=== PATIENT | female | born 1975 | race African-American/Black ===

== ENCOUNTER 2016-07-17 17:45 | Emergency (ER) | payer SELFPAY ==
[~2016-07-17] VITALS: Ht 162.6 cm; Wt 85.7 kg
[~2016-07-17 17:45] MED LIST: ACETAMINOPHEN-1 EAC1; ATENOLOL50 MG ORAL; BENADRYL25 M3 PO; BENADRYL50 MG ORAL; BENAZEPRIL HCL10 MG ORAL; HYDROCHLOROTHIA25 MG ORAL; OMEPRAZOLE20 M3 ORAL; PREDNISONE20 MG ORAL; PROAIR HFA8.5 GM; ZANTAC150 MG ORAL
[2016-07-17] MEDS ORDERED: PROAIR HFA8.5 GM INH (18:02)
[2016-07-17] MEDS ORDERED: ATIVAN0.5 MG ORAL (18:02)
--- NOTE | 2016-07-17 18:19 | Emergency Room Report ---
History of Present Illness General Chief Complaint: Pain Source: Patient, Medical Record Present Illness HPI The patient is a 41-year-old female with a history of hypertension presenting for absence of period for the past 2 months. The patient believes she may be . The patient has been experiencing nausea and vomiting which occurs only after eating. The patient has tried a test at home which were inconclusive. The patient states she has not taken her antihypertensive medications which include hydrochlorothiazide, atenolol, and benazepril for the past month because she ran out of medications and was unable to see the doctor. Pt denies any other symptoms such as F, chills, BERGMAN, dizziness, abd pain, dysuria , hematuria, vaginal bleeding, vaginal DC, flank pain, swelling Allergies: Coded Allergies: BANANA (Verified Allergy, Severe, Itching, 06/18/13) STRAWBERRY (Verified Allergy, Severe, Itching, 06/18/13) Patient History Past Medical History: see triage record Pertinent Family History: none Last Menstrual Period: 05/26/2016 Now: Yes - Possible : 2 Para: 3 Reviewed Nursing Documentation: PMH: Agreed, PSxH: Agreed Nursing Documentation-PMH Hx Hypertension: Yes Hx Asthma: Yes Review of Systems All Other Systems: negative except mentioned in HPI Physical Exam Vital Signs Date Time Temp Pulse Resp B/P Pulse Ox O2 Delivery O2 Flow Rate FiO2 07/17/16 17:53 98.1 106 16 192/109 100 Room Air Sp02 EP Interpretation: reviewed, normal General Appearance: no apparent distress, alert, GCS 15, non-toxic Head: normocephalic, atraumatic Eyes: bilateral eye PERRL, bilateral eye normal inspection ENT: hearing grossly normal, normal pharynx, no angioedema, normal voice Neck: full range of motion, supple/symm/no masses Respiratory: chest non-tender, lungs clear, normal breath sounds, speaking full sentences Cardiovascular #1: regular rate, rhythm, no edema Gastrointestinal: normal bowel sounds, non tender, soft, no mass, non-distended , no guarding, no rebound Musculoskeletal: back normal, gait/station normal, normal range of motion, non- tender Neurologic: alert, oriented x3, responsive, motor strength/tone normal, sensory intact, speech normal Psychiatric: judgement/insight normal, memory normal, mood/affect normal, no suicidal/homicidal ideation Skin: normal color, no rash, warm/dry, well hydrated Lymphatic: no adenopathy Medical Decision Making PA Attestation Dr. Fischer is my supervising physician. Patient management was discussed with my supervising physician Diagnostic Impression: Primary Impression: Nausea & vomiting Additional Impression: Possible ER Course The patient is a 41-year-old female with a history of hypertension presenting for absence of period for the past 2 months Differential diagnoses considered include but not limited to Early , threatened , incomplete , ectopic , hemorrhagic cyst, UTI, PID PE: HTN. Afebrile. NAD Abdomen: Normal appearance. Non distended. No ecchymosis. Normal BS. Non TTP. No McBurney point tenderness. No guarding. No CVA tenderness Lab: CBC shows anemia and leukocytosis of 12.8 CMP: hypokalemia. Beta hCG of 557 UA: no signs of infection. No blood. Urine preg: negative. Pt has declined US. The pt is informed of these results and will take in dietary potassium though foods such as spinach. The pt is advised she needs to return to the ED in 2 days for recheck of Beta hCG and possibly US. Pt agrees. ER precautions given. Laboratory Tests Test 07/17/16 18:40 White Blood Count 12.8 K/UL (4.8-10.8) H Red Blood Count 4.88 M/UL (4.20-5.40) Hemoglobin 9.0 G/DL (12.0-16.0) L Hematocrit 32.0 % (37.0-47.0) L Mean Corpuscular Volume 66 FL (80-99) L Mean Corpuscular Hemoglobin 18.5 PG (27.0-31.0) L Mean Corpuscular Hemoglobin Concent 28.2 G/DL (32.0-36.0) L Red Cell Distribution Width 16.9 % (11.6-14.8) H Platelet Count 227 K/UL (150-450) Mean Platelet Volume 10.1 FL (6.5-10.1) Neutrophils (%) (Auto) 72.2 % (45.0-75.0) Lymphocytes (%) (Auto) 20.8 % (20.0-45.0) Monocytes (%) (Auto) 5.5 % (1.0-10.0) Eosinophils (%) (Auto) 1.0 % (0.0-3.0) Basophils (%) (Auto) 0.6 % (0.0-2.0) Urine Color Yellow Urine Appearance Slightly cloudy Urine pH 6 (4.5-8.0) Urine Specific [place] 1.015 (1.005-1.035) Urine Protein Negative (NEGATIVE) Urine Glucose (UA) Negative (NEGATIVE) Urine Ketones Negative (NEGATIVE) Urine Occult Blood Negative (NEGATIVE) Urine Nitrite Negative (NEGATIVE) Urine Bilirubin Negative (NEGATIVE) Urine Urobilinogen 1 MG/DL (0.0-1.0) H Urine Leukocyte Esterase 1+ (NEGATIVE) H Urine RBC 0-2 /HPF (0 - 2) Urine WBC 2-4 /HPF (0 - 2) Urine Squamous Epithelial Cells Many /LPF (NONE/OCC) H Urine Bacteria Few /HPF (NONE) Urine HCG, Qualitative Negative Sodium Level 139 mEQ/L (135-145) Potassium Level 3.1 mEQ/L (3.4-4.9) L Chloride Level 97 mEQ/L (98-107) L Carbon Dioxide Level 24 mEQ/L (20-30) Anion Gap 18 (5-15) H Blood Urea Nitrogen 8 mg/dL (7-23) Creatinine 0.7 mg/dL (0.5-0.9) Estimate Glomerular Filtration Rate > 60 mL/min (>60) Glucose Level 119 mg/dL (74-106) H Calcium Level 9.1 mg/dL (8.6-10.2) Total Bilirubin 0.2 mg/dL (0.0-1.2) Aspartate Amino Transferase (AST) 15 U/L (5-40) Alanine Aminotransferase (ALT) 11 U/L (3-33) Alkaline Phosphatase 77 U/L (35-104) Total Protein 7.4 g/dL (6.6-8.7) Albumin 4.4 g/dL (3.5-5.2) Globulin 3.0 g/dL Albumin/Globulin Ratio 1.4 (1.0-2.7) Lipase 38 U/L (< 60) Human Chorionic Gonadotropin, Quant 557 mIU/mL Lab Results Impression CBC shows anemia and leukocytosis of 12.8 CMP: hypokalemia. Beta hCG of 557 UA: no signs of infection. No blood. Urine preg: negative. Last Vital Signs Date Time Temp Pulse Resp B/P Pulse Ox O2 Delivery O2 Flow Rate FiO2 07/17/16 17:53 98.1 106 16 192/109 100 Room Air Status: improved Disposition: HOME, SELF-CARE Condition: Improved PIOTR BRANDON Jul 17, 2016 18:19
[2016-07-17 19:17] LABS: APPEARANCE,URINE SLIGHTLY CLOUDY; KETONES,URINE NEGATIVE (NEGATIVE); LEUKOCYTE ESTERASE ,URINE 1+ (NEGATIVE); NITRITE,URINE NEGATIVE (NEGATIVE); PH,URINE 6 (4.5-8.0); PROTEIN,URINE NEGATIVE (NEGATIVE); UROBILINOGEN,URINE 1 MG/DL (0.0-1.0)
[2016-07-17 19:22] LABS: BASOPHILS % (AUTO) 0.6 % (0.0-2.0); LYMPHOCYTES % (AUTO) 20.8 % (20.0-45.0); MEAN CORPUSCULAR HEMOGLOBIN 18.5 PG (27.0-31.0); MEAN CORPUSCULAR HGB CONC 28.2 G/DL (32.0-36.0); MEAN CORPUSCULAR VOLUME 66 FL (80-99); MEAN PLATELET VOLUME 10.1 FL (6.5-10.1); MONOCYTES % (AUTO) 5.5 % (1.0-10.0); NEUTROPHILS % (AUTO) 72.2 % (45.0-75.0); PLATELET COUNT 227 K/UL (150-450); RED BLOOD COUNT 4.88 M/UL (4.20-5.40); RED CELL DISTRIBUTION WIDTH 16.9 % (11.6-14.8); WHITE BLOOD COUNT 12.8 K/UL (4.8-10.8)
[2016-07-17 19:24] LABS: ALANINE AMINOTRANSFERASE 11 U/L (3-33); ALBUMIN/GLOBULIN RATIO 1.4 (1.0-2.7); ANION GAP 18 (5-15); ASPARTATE AMINO TRANSFERASE 15 U/L (5-40); CALCIUM 9.1 mg/dL (8.6-10.2); CARBON DIOXIDE 24 mEQ/L (20-30); CHLORIDE 97 mEQ/L (98-107); CREATININE 0.7 mg/dL (0.5-0.9); GLOMERULAR FILTRATION RATE > 60 mL/min (>60); HEMOLYSIS 2; LIPASE 38 U/L (< 60); POTASSIUM 3.1 mEQ/L (3.4-4.9); SODIUM 139 mEQ/L (135-145); TOTAL PROTEIN 7.4 g/dL (6.6-8.7)
[2016-07-17 19:26] LABS: RBC,URINE 0-2 /HPF (0 - 2)
[2016-07-17 19:27] LABS: BACTERIA,URINE FEW /HPF; SQUAMOUS EPITHELIAL CELL,UR MANY /LPF (NONE/OCC)
[2016-07-17 19:54] VITALS: BP 147/83
[2016-07-17 19:55] VITALS: BP 147/83
== END 2016-07-17 19:59 | disposition home or self-care (01) ==
LOC: EMR 18:20
DX: R11.2 Nausea with vomiting, unspecified (principal); I10 Essential (primary) hypertension; J45.909 Unspecified asthma, uncomplicated; Z79.899 Other long term (current) drug therapy; Z91.018 Allergy to other foods
CPT/HCPCS: 36415; 80053; 81003; 81025; 83690; 84702; 85025; 96374

== ENCOUNTER 2016-08-11 03:08 | Emergency (ER) | payer SELFPAY ==
[~2016-08-11] VITALS: Ht 160 cm; Wt 59.0 kg
[~2016-08-11 03:08] MED LIST changes: +ATIVAN0.5 MG ORAL; +PROAIR HFA8.5 GM INH
--- NOTE | 2016-08-11 03:33 | Emergency Room Report ---
History of Present Illness General Chief Complaint: Nosebleed Source: Patient Present Illness HPI Is a 41-year-old female with a history hypertension. She presents with chief complaint of nosebleed. She's been off of her blood pressure medication for about 2 months now. Reason for this because she may be . She was seen here in early July and had a beta-hCG of 550. She's off of her medication. She was doing well until this morning when she caught and had nosebleed. It stopped tonight she was coughing and nosebleed start bleeding again. Going from both side. Also cause her to choke because it low-back her throat. No fever or chills but no trauma. Denies any other complaint. No swelling. Allergies: Coded Allergies: BANANA (Verified Allergy, Severe, Itching, 06/18/13) STRAWBERRY (Verified Allergy, Severe, Itching, 06/18/13) Patient History Past Medical History: see triage record, old chart reviewed, HTN Past Surgical History: none Pertinent Family History: none Social History: Denies: smoking Last Menstrual Period: MAY Now: Yes - 6 TO 8 WEEKS Immunizations: other Reviewed Nursing Documentation: PMH: Agreed, PSxH: Agreed Nursing Documentation-PMH Hx Hypertension: Yes Hx Asthma: Yes Review of Systems Eye: Denies: blurred vision, eye pain ENT: Denies: ear pain, nose congestion, throat swelling Respiratory: Denies: cough, shortness of breath Cardiovascular: Denies: chest pain, palpitations Gastrointestinal: Denies: abdominal pain, diarrhea, nausea, vomiting Musculoskeletal: Denies: back pain, joint pain Skin: Denies: rash Neurological: Denies: headache, numbness Endocrine: Denies: increased thirst, increased urine Hematologic/Lymphatic: Denies: easy bruising All Other Systems: negative except mentioned in HPI Physical Exam Vital Signs Date Time Temp Pulse Resp B/P Pulse Ox O2 Delivery O2 Flow Rate FiO2 08/11/16 03:03 98.1 74 18 160/84 98 vitals hypertension Sp02 EP Interpretation: reviewed, normal General Appearance: well appearing, no apparent distress, alert Head: normocephalic, atraumatic Eyes: bilateral eye EOMI, bilateral eye PERRL ENT: hearing grossly normal, normal pharynx, other - Bleeding from both nares Neck: full range of motion, supple, no meningismus Respiratory: chest non-tender, lungs clear, normal breath sounds Cardiovascular #1: regular rate, rhythm, no murmur Gastrointestinal: normal bowel sounds, non tender, no mass, no organomegaly, no bruit, non-distended Musculoskeletal: back normal, gait/station normal, normal range of motion Psychiatric: mood/affect normal Skin: warm/dry Medical Decision Making Diagnostic Impression: Primary Impression: Epistaxis Additional Impressions: Hypertension Qualified Codes: I10 - Essential (primary) hypertension Cocaine abuse Asthma exacerbation Hypokalemia ER Course Patient presents with epistaxis that resolved. She also has severely high blood pressure which is noncompliant with her medication. She began wheezing after hydralazine. She does have history of asthma and has been on steroid and albuterol before. I suspect the blood pressure is elevated and wheezing may be secondary to cocaine abuse. She denies snorting it. I suspect that she smoking at causing wheezing and high blood pressure. Is also in turn caused nosebleed. Her bleeding stopped already with pressure. Pt's HCG only increased from 557 to 11K in one month. Last time she refused pelvic US. Agree to it now. Pt now refused US. will dc home with Rx for htn meds. pt will need to f/u with US. Laboratory Tests Test 08/11/16 03:35 White Blood Count 10.8 K/UL (4.8-10.8) Red Blood Count 4.41 M/UL (4.20-5.40) Hemoglobin 8.3 G/DL (12.0-16.0) L Hematocrit 28.3 % (37.0-47.0) L Mean Corpuscular Volume 64 FL (80-99) L Mean Corpuscular Hemoglobin 18.9 PG (27.0-31.0) L Mean Corpuscular Hemoglobin Concent 29.4 G/DL (32.0-36.0) L Red Cell Distribution Width 17.2 % (11.6-14.8) H Platelet Count 210 K/UL (150-450) Mean Platelet Volume 9.7 FL (6.5-10.1) Neutrophils (%) (Auto) 66.9 % (45.0-75.0) Lymphocytes (%) (Auto) 22.7 % (20.0-45.0) Monocytes (%) (Auto) 5.6 % (1.0-10.0) Eosinophils (%) (Auto) 4.0 % (0.0-3.0) H Basophils (%) (Auto) 0.9 % (0.0-2.0) Prothrombin Time 10.5 SEC (9.30-11.50) Prothromb Time International Ratio 1.0 (0.9-1.1) Activated Partial Thromboplast Time 27 SEC (23-33) Urine Color Yellow Urine Appearance Clear Urine pH 6 (4.5-8.0) Urine Specific [place] 1.025 (1.005-1.035) Urine Protein 1+ (NEGATIVE) H Urine Glucose (UA) Negative (NEGATIVE) Urine Ketones Negative (NEGATIVE) Urine Occult Blood 2+ (NEGATIVE) H Urine Nitrite Negative (NEGATIVE) Urine Bilirubin Negative (NEGATIVE) Urine Urobilinogen 1 MG/DL (0.0-1.0) H Urine Leukocyte Esterase 2+ (NEGATIVE) H Urine RBC 5-10 /HPF (0 - 2) H Urine WBC 2-4 /HPF (0 - 2) Urine Squamous Epithelial Cells Many /LPF (NONE/OCC) H Urine Bacteria Few /HPF (NONE) Sodium Level 142 mEQ/L (135-145) Potassium Level 2.9 mEQ/L (3.4-4.9) L Chloride Level 99 mEQ/L (98-107) Carbon Dioxide Level 29 mEQ/L (20-30) Anion Gap 14 (5-15) Blood Urea Nitrogen 12 mg/dL (7-23) Creatinine 0.8 mg/dL (0.5-0.9) Estimat Glomerular Filtration Rate > 60 mL/min (>60) Glucose Level 124 mg/dL (74-106) H Calcium Level 9.0 mg/dL (8.6-10.2) Human Chorionic Gonadotropin, Quant 68586 mIU/mL Urine Opiates Screen Negative (NEGATIVE) Urine Barbiturates Screen Negative (NEGATIVE) Phencyclidine (PCP) Screen Negative (NEGATIVE) Urine Amphetamines Screen Negative (NEGATIVE) Urine Benzodiazepines Screen Negative (NEGATIVE) Urine Cocaine Screen Positive (NEGATIVE) H Urine Marijuana (THC) Screen Positive (NEGATIVE) H Lab Results Impression labs showed hypokalemia Rhythm Strip Diag. Results EP Interpretation: yes Rate: 100 Rhythm: NSR, no PVC's, no ectopy Chest X-Ray Diagnostic Results EP Interpretation: Yes Findings: no consolidation, no effusion, no pneumothorax, no acute cardiopulmonary disease Number of Views: 1 Last Vital Signs Date Time Temp Pulse Resp B/P Pulse Ox O2 Delivery O2 Flow Rate FiO2 08/11/16 03:03 98.1 74 18 160/84 98 Status: improved Disposition: HOME, SELF-CARE Condition: Stable Scripts Prednisone* (PREDNISONE*) 20 Mg Tablet 60 MG ORAL DAILY, #15 TAB Prov: RAMONA WEIR M.D. 08/11/16 Albuterol Sulfate* (ALBUTEROL SULFATE MDI*) 8.5 Gm Hfa.aer.ad 2 PUFF INH Q4H Y for cough/wheezing, #1 EA 0 Refills Prov: RAMONA WEIR M.D. 08/11/16 Hydralazine Hcl* (HYDRALAZINE HCL*) 50 Mg Tablet 50 MG ORAL EVERY 8 HOURS, #90 TAB Prov: RAMONA WEIR M.D. 08/11/16 Referrals: NOT CHOSEN IPA/,REFERRING (PCP) Patient Instructions: Nosebleed, [id number] Additional Instructions: Followup with your Dr. in 2 to 3 days. You refuse to have an ultrasound here. You will be a pelvic ultrasound to determine stage of or ectopic or retained products. Stop using cocaine. Take your blood pressure medication. Take your asthma medication. Return if you change your mind. RAMONA WEIR M.D. August 11, 2016 03:33
[2016-08-11 03:45] VITALS: BP 189/98
[2016-08-11 03:49] LABS: APPEARANCE,URINE CLEAR; KETONES,URINE NEGATIVE (NEGATIVE); LEUKOCYTE ESTERASE ,URINE 2+ (NEGATIVE); NITRITE,URINE NEGATIVE (NEGATIVE); PH,URINE 6 (4.5-8.0); PROTEIN,URINE 1+ (NEGATIVE); UROBILINOGEN,URINE 1 MG/DL (0.0-1.0)
[2016-08-11 03:50] LABS: BASOPHILS % (AUTO) 0.9 % (0.0-2.0); LYMPHOCYTES % (AUTO) 22.7 % (20.0-45.0); MEAN CORPUSCULAR HEMOGLOBIN 18.9 PG (27.0-31.0); MEAN CORPUSCULAR HGB CONC 29.4 G/DL (32.0-36.0); MEAN CORPUSCULAR VOLUME 64 FL (80-99); MEAN PLATELET VOLUME 9.7 FL (6.5-10.1); MONOCYTES % (AUTO) 5.6 % (1.0-10.0); NEUTROPHILS % (AUTO) 66.9 % (45.0-75.0); PLATELET COUNT 210 K/UL (150-450); RED BLOOD COUNT 4.41 M/UL (4.20-5.40); RED CELL DISTRIBUTION WIDTH 17.2 % (11.6-14.8); WHITE BLOOD COUNT 10.8 K/UL (4.8-10.8)
[2016-08-11 03:58] LABS: BACTERIA,URINE FEW /HPF; SQUAMOUS EPITHELIAL CELL,UR MANY /LPF (NONE/OCC)
[2016-08-11 04:04] LABS: PROTHROMBIN TIME 10.5 SEC (9.30-11.50)
[2016-08-11 04:07] LABS: ANION GAP 14 (5-15); CARBON DIOXIDE 29 mEQ/L (20-30); CHLORIDE 99 mEQ/L (98-107); CREATININE 0.8 mg/dL (0.5-0.9); GLOMERULAR FILTRATION RATE > 60 mL/min (>60); HEMOLYSIS 0; POTASSIUM 2.9 mEQ/L (3.4-4.9); SODIUM 142 mEQ/L (135-145)
[2016-08-11] MEDS ORDERED: cloNIDine 0.2mg Tab ONE (04:42)
[2016-08-11] MEDS ORDERED: Solu-MEDROL 125mg Inj ONE (04:42)
[2016-08-11] MEDS ORDERED: Norco 5mg/325mg tab ORAL ONE (04:45)
[2016-08-11] MEDS ORDERED: Solu-MEDROL 125mg Inj IVP ONE (04:45)
[2016-08-11] MEDS ORDERED: Ipratropium 0.02% Inh Soln 2.5ml UD HHN ONE (04:45)
[2016-08-11] MEDS ORDERED: Albuterol ud Inhalation HHN ONE ×2 (04:45→05:45)
[2016-08-11 04:58] VITALS: BP 176/115
[2016-08-11 06:06] VITALS: BP 151/125
[2016-08-11] MEDS ORDERED: PREDNISONE20 MG ORAL (06:20)
[2016-08-11] MEDS ORDERED: ALBUTEROL SULF8.5 GM INH (06:20)
[2016-08-11] MEDS ORDERED: HYDRALAZINE HCL50 MG ORAL (06:20)
[2016-08-11 06:25] VITALS: BP 151/125
--- NOTE | 2016-08-11 09:42 | Diagnostic Imaging Report ---
Indication: Shortness of breath Comparison: None A single view chest radiograph was obtained. Findings: Cardiomediastinal appearance is within normal limits for age. Pulmonary vascularity is appropriate. The diaphragmatic contour is smooth and costophrenic angles are sharp. No pleural effusions are identified. The bones are unremarkable. Impression: No acute findings
== END 2016-08-11 06:25 | disposition home or self-care (01) ==
LOC: EDBD 03:08 → EMR 03:24
DX: O26.891 Other specified pregnancy related conditions, first trimester (principal); Z3A.00 Weeks of gestation of pregnancy not specified; R04.0 Epistaxis; J45.909 Unspecified asthma, uncomplicated; O16.1 Unspecified maternal hypertension, first trimester; E87.6 Hypokalemia; F14.10 Cocaine abuse, uncomplicated; Z91.19 Patient's noncompliance with other medical treatment and regimen; F17.210 Nicotine dependence, cigarettes, uncomplicated; Z91.018 Allergy to other foods; Z53.21 Procedure and treatment not carried out due to patient leaving prior to being seen by health care provider
CPT/HCPCS: 36415; 71010; 80048; 80300; 81001; 84702; 85025; 85610; 85730; 94640; 94664; 96374; 96375; 99284; J0360; J2930

== ENCOUNTER 2016-12-30 00:49 | Emergency (ER) | payer SELFPAY ==
[~2016-12-30] VITALS: Ht 162.6 cm; Wt 89.4 kg
[~2016-12-30 00:49] MED LIST changes: +ALBUTEROL SULF8.5 GM INH; +HYDRALAZINE HCL50 MG ORAL
[2016-12-30 01:22] VITALS: BP 180/110
--- NOTE | 2016-12-30 01:25 | Emergency Room Report ---
History of Present Illness General Chief Complaint: Upper Extremity Injury Source: Patient Present Illness HPI 41-year-old female history of asthma and hypertension presenting with left wrist pain. Patient states that she was on her daughter's skate board, fell, landed on an outstretched left hand. Now pain to left wrist, worse with any movement. Denies head trauma or LOC. No other injuries Allergies: Coded Allergies: BANANA (Verified Allergy, Severe, Itching, 06/18/13) STRAWBERRY (Verified Allergy, Severe, Itching, 06/18/13) Patient History Past Medical History: see triage record Past Surgical History: none Pertinent Family History: none Last Menstrual Period: Dec Reviewed Nursing Documentation: PMH: Agreed, PSxH: Agreed Nursing Documentation-PMH Hx Hypertension: Yes Hx Asthma: Yes Review of Systems All Other Systems: negative except mentioned in HPI Physical Exam Vital Signs Date Time Temp Pulse Resp B/P (MAP) Pulse Ox O2 Delivery O2 Flow Rate FiO2 12/30/16 01:10 97.3 96 16 180/110 100 Room Air Sp02 EP Interpretation: reviewed, normal General Appearance: normal inspection, well appearing, no apparent distress, alert, GCS 15, non-toxic Head: normocephalic, atraumatic Eyes: bilateral eye normal inspection, bilateral eye PERRL, bilateral eye EOMI ENT: normal ENT inspection, normal pharynx, normal voice, moist mucus membranes Neck: normal inspection, full range of motion, supple Respiratory: normal inspection, lungs clear, normal breath sounds, no respiratory distress, no retraction, no wheezing, speaking full sentences, chest symmetrical Cardiovascular #1: normal inspection, regular rate, rhythm, no edema, normal capillary refill Cardiovascular #2: 2+ radial (R), 2+ radial (L) Gastrointestinal: normal inspection, non tender, soft, non-distended, no guarding Musculoskeletal: other - L wrist with mild swelling, tender to palpation both medial and lateral aspects, limited wrist flexion and extension secondary to pain, no forearm or hand tenderness Neurologic: normal inspection, alert, oriented x3, responsive, motor strength/ tone normal, sensory intact, normal gait, speech normal Psychiatric: normal inspection, judgement/insight normal, memory normal Skin: normal inspection, normal color, no rash, warm/dry, well hydrated, normal turgor Procedures Splinting Splinting : Consent: Verbal Location: L wrist Pre-Made Type: RUBA wrap Pre-Proc Neuro Vasc Exam: normal Post-Proc Neuro Vasc Exam: normal Patient Tolerated: Well Complications: None Medical Decision Making Diagnostic Impression: Primary Impression: Contusion of wrist, left ER Course 41-year-old female, FOOSH injury, left wrist pain DDX: sprain/strain vs. fracture Plan: pain control x-ray ER course: Pt offered motrin and tylenol, also percocet, only states [employer] works for her there is no fracture on XR patient otherwise NAD at bedside will DC home Disposition: Patient is to be discharged home Patient educated to rest, ice, and elevate extremity and to avoid vigorous activity. Strict precautions discussed with patient on when to return to the emergency room including increased redness or swelling joints, increased pain/swelling of extremity, fever or chills, which could indicate severe illness. Patient is to follow up with their primary care doctor within 5 days. Patient also instructed to follow up with an orthopedic doctor if continuing to have mild/moderate pain as he may need further outpatient imaging. Patient agrees with plan. Please note that this Emergency Department Report was dictated using [employer] manager technology software, occasionally this can lead to erroneous entry secondary to interpretation by the dictation equipment. Other X-Ray Diagnostic Results Other X-Ray Diagnostic Results #1: X-Ray ordered: L wrist # of Views/Limited Vs Complete: 3 View Indication: Pain EP Interpretation: Yes Interpretation: no dislocation, no soft tissue swelling, no fractures Impression: No acute disease Electronically Signed by: Electronically signed by Yudelka Lay MD Other X-Ray Diagnostic Results #2: X-Ray ordered: L forearm # of Views/Limited Vs Complete: 2 View Indication: Pain EP Interpretation: Yes Interpretation: no dislocation, no soft tissue swelling, no fractures Impression: No acute disease Electronically Signed by: Electronically signed by Yudelka Lay MD Last Vital Signs Date Time Temp Pulse Resp B/P (MAP) Pulse Ox O2 Delivery O2 Flow Rate FiO2 12/30/16 01:10 97.3 96 16 180/110 100 Room Air Yudelka Lay M.D. Dec 30, 2016 01:25
[2016-12-30] MEDS ORDERED: Acetaminophen 500mg (ES) tab ORAL ONE (01:45)
[2016-12-30 02:25] VITALS: BP 180/110
--- NOTE | 2016-12-30 11:29 | Diagnostic Imaging Report ---
Indications: PAIN Technique: Two views of the left forearm Comparison: None Findings: No acute fractures. No dislocations. No radiopaque foreign body Impression: Negative
--- NOTE | 2016-12-30 11:31 | Diagnostic Imaging Report ---
Clinical Indication:PAIN, status post fall Technique: 3 views of the left wrist Comparison: None Findings: No acute fractures. No dislocations. Joint spaces are preserved Impression: Negative
== END 2016-12-30 02:29 | disposition home or self-care (01) ==
LOC: EMR 01:21
DX: S60.212A Contusion of left wrist, initial encounter (principal); W19.XXXA Unspecified fall, initial encounter; Y93.51 Activity, roller skating (inline) and skateboarding; J45.909 Unspecified asthma, uncomplicated; I10 Essential (primary) hypertension; Y92.9 Unspecified place or not applicable; Z91.018 Allergy to other foods
CPT/HCPCS: 99284

== ENCOUNTER 2017-12-24 12:54 | Emergency (ER) | payer MEDICAID ==
[~2017-12-24] VITALS: Ht 162.6 cm; Wt 86.2 kg
[2017-12-24 13:15] VITALS: BP 192/129
[2017-12-24] MEDS ORDERED: Sodium Chloride 500ML 500 ML IV ONE (13:48)
--- NOTE | 2017-12-24 13:51 | Emergency Room Report ---
History of Present Illness General Chief Complaint: Headache Source: Patient (Micheal Peacock DO) Present Illness HPI Patient presents with complaints of headache blurry vision reports that she has not taken her blood pressure medication for over the past one year She was previously on hydralazine She also feels that she likely has a UTI Denies any chest pain or short of breath Denies any focal weakness denies any back or flank pain headache is fairly diffuse denies any photophobia denies any neck pain (Micheal Peacock DO) Allergies: Coded Allergies: BANANA (Verified Allergy, Severe, Itching, 06/18/13) STRAWBERRY (Verified Allergy, Severe, Itching, 06/18/13) Patient History Past Medical History: see triage record Pertinent Family History: none Now: No Reviewed Nursing Documentation: PMH: Agreed; PSxH: Agreed (Micheal Peacock DO) Nursing Documentation-PMH Hx Hypertension: Yes Hx Asthma: Yes (DarlineMicheal zavala DO) Review of Systems All Other Systems: negative except mentioned in HPI (Micheal Peacock DO) Physical Exam Vital Signs Date Time Temp Pulse Resp B/P (MAP) Pulse Ox O2 Delivery O2 Flow Rate FiO2 12/24/17 13:02 98.1 98 20 192/129 98 Room Air 98.1 Sp02 EP Interpretation: reviewed, normal General Appearance: well appearing, no apparent distress Head: normocephalic, atraumatic Eyes: bilateral eye PERRL, bilateral eye EOMI ENT: hearing grossly normal, normal pharynx, TMs + canals normal, uvula midline Neck: full range of motion, supple, no meningismus, no bony tend Respiratory: lungs clear, normal breath sounds, no rhonchi, no respiratory distress, no retraction, no accessory muscle use Cardiovascular #1: normal peripheral pulses, regular rate, rhythm, no edema, no gallop, no JVD, no murmur Gastrointestinal: normal bowel sounds, non tender, soft, no mass, no organomegaly, non-distended, no guarding, no hernia, no pulsatile mass, no rebound Genitourinary: no CVA tenderness Musculoskeletal: normal inspection Neurologic: oriented x3, responsive, 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 Total critical care time excluding procedures approximately 45 minutes. (Maikel Deal MD) Medical Decision Making Diagnostic Impression: Primary Impression: Uncontrolled hypertension Additional Impressions: Intrauterine Urinary tract infection ER Course Patient was endorsed to me by Dr. Peacock. The patient was noted to have the elevated blood pressure headache and blurred vision. The patient was noted to have had been given hydralazine IV. The patient reports having irregular periods and states her last menses was in September. The patient was unaware of her . The patient was noted to have continued elevated blood pressure. The patient was given clonidine by mouth. Without any change in blood pressure. Urine drug screen was noted to be positive for marijuana and amphetamine. And urine test were noted to be positive. The patient started on IV magnesium. Patient was noted to have normal mental status. She is not hyperreflexic. She has no clonus. The pelvic ultrasound showed intrauterine at 22 weeks. The [facility] was contacted for possible transfer for or lightheaded hypertension for higher level of care. Laboratory testing was notable from cytopenia. Noted to have some evidence of proteinuria. The patient was given IV labetalol due to persistent elevated blood pressure with some improvement. Patient was discussed with Dr. Kirby at [facility] for transfer for higher level of care for labor and delivery. The patient was given a total 20 mg of labetalol IV repeat blood pressure at the time of transfer was noted be markedly improved Labs Test 12/24/17 14:01 White Blood Count 12.6 K/UL (4.8-10.8) Red Blood Count 4.79 M/UL (4.20-5.40) Hemoglobin 11.0 G/DL (12.0-16.0) Hematocrit 35.3 % (37.0-47.0) Mean Corpuscular Volume 74 FL (80-99) Mean Corpuscular Hemoglobin 22.9 PG (27.0-31.0) Mean Corpuscular Hemoglobin Concent 31.1 G/DL (32.0-36.0) Red Cell Distribution Width 22.7 % (11.6-14.8) Platelet Count 66 K/UL (150-450) Mean Platelet Volume 12.8 FL (6.5-10.1) Neutrophils (%) (Auto) % (45.0-75.0) Lymphocytes (%) (Auto) % (20.0-45.0) Monocytes (%) (Auto) % (1.0-10.0) Eosinophils (%) (Auto) % (0.0-3.0) Basophils (%) (Auto) % (0.0-2.0) Differential Total Cells Counted 100 Neutrophils % (Manual) 80 % (45-75) Lymphocytes % (Manual) 14 % (20-45) Monocytes % (Manual) 6 % (1-10) Eosinophils % (Manual) 0 % (0-3) Basophils % (Manual) 0 % (0-2) Band Neutrophils 0 % (0-8) Platelet Estimate Decreased Platelet Morphology Normal Hypochromasia 2+ Anisocytosis 3+ Microcytosis 1+ Urine Color Yellow Urine Appearance Turbid Urine pH 6 (4.5-8.0) Urine Specific [place] 1.015 (1.005-1.035) Urine Protein 4+ (NEGATIVE) Urine Glucose (UA) Negative (NEGATIVE) Urine Ketones 1+ (NEGATIVE) Urine Blood 5+ (NEGATIVE) Urine Nitrite Positive (NEGATIVE) Urine Bilirubin Negative (NEGATIVE) Urine Urobilinogen 1 MG/DL (0.0-1.0) Urine Leukocyte Esterase 2+ (NEGATIVE) Urine RBC Tntc /HPF (0 - 2) Urine WBC 5-10 /HPF (0 - 2) Urine Squamous Epithelial Cells Many /LPF (NONE/OCC) Urine Bacteria Many /HPF (NONE) Urine HCG, Qualitative Positive (NEGATIVE) Sodium Level 136 MMOL/L (136-145) Potassium Level 3.1 MMOL/L (3.5-5.1) Chloride Level 102 MMOL/L (98-107) Carbon Dioxide Level 24 MMOL/L (21-32) Anion Gap 10 mmol/L (5-15) Blood Urea Nitrogen 10 mg/dL (7-18) Creatinine 0.7 MG/DL (0.55-1.30) Estimat Glomerular Filtration Rate > 60 mL/min (>60) Glucose Level 82 MG/DL (74-106) Calcium Level 8.9 MG/DL (8.5-10.1) Total Bilirubin 0.8 MG/DL (0.2-1.0) Aspartate Amino Transf (AST/SGOT) 40 U/L (15-37) Alanine Aminotransferase (ALT/SGPT) 20 U/L (12-78) Alkaline Phosphatase 114 U/L (46-116) Total Creatine Kinase 128 U/L (26-308) Creatine Kinase MB 2.3 NG/ML (0.0-3.6) Creatine Kinase MB Relative Index 1.7 Total Protein 7.2 G/DL (6.4-8.2) Albumin 2.7 G/DL (3.4-5.0) Globulin 4.5 g/dL Albumin/Globulin Ratio 0.6 (1.0-2.7) Human Chorionic Gonadotropin, Quant 49039 mIU/mL (1-6) Urine Opiates Screen Negative (NEGATIVE) Urine Barbiturates Screen Negative (NEGATIVE) Phencyclidine (PCP) Screen Negative (NEGATIVE) Urine Amphetamines Screen Positive (NEGATIVE) Urine Benzodiazepines Screen Negative (NEGATIVE) Urine Cocaine Screen Negative (NEGATIVE) Urine Marijuana (THC) Screen Positive (NEGATIVE) (Maikel Deal MD) EKG Diagnostic Results Rate: normal - 90 Rhythm: NSR ST Segments: no acute changes (Maikel Deal MD) Last Vital Signs Date Time Temp Pulse Resp B/P (MAP) Pulse Ox O2 Delivery O2 Flow Rate FiO2 12/24/17 13:15 98.1 78 20 192/129 98 Room Air 98.1 (Micheal Peacock DO) Status: improved (Maikel Deal MD) Disposition: XFER SHT-TRM HOSP Condition: Critical Micheal Peacock DO Dec 24, 2017 13:51 Maikel Deal MD Dec 24, 2017 15:01
[2017-12-24 14:42] LABS: HEMATOCRIT 35.3 % (37.0-47.0); MEAN CORPUSCULAR VOLUME 74 FL (80-99); PLATELET COUNT 66 K/UL (150-450); RED BLOOD COUNT 4.79 M/UL (4.20-5.40); RED CELL DISTRIBUTION WIDTH 22.7 % (11.6-14.8); WHITE BLOOD COUNT 12.6 K/UL (4.8-10.8)
[2017-12-24 14:46] LABS: APPEARANCE,URINE TURBID; BILIRUBIN, URINE NEGATIVE (NEGATIVE); GLUCOSE, URINE (UA) NEGATIVE (NEGATIVE); KETONES,URINE 1+ (NEGATIVE); LEUKOCYTE ESTERASE ,URINE 2+ (NEGATIVE); NITRITE,URINE POSITIVE (NEGATIVE); PH,URINE 6 (4.5-8.0); PROTEIN,URINE 4+ (NEGATIVE); UROBILINOGEN,URINE 1 MG/DL (0.0-1.0)
[2017-12-24 14:48] LABS: COLOR,URINE YELLOW
--- NOTE | 2017-12-24 14:49 | Diagnostic Imaging Report ---
Indication: Headache and blurry vision Technique: Continuous helical CT scanning of the head was performed without intravenous contrast material. Axial and coronal 5 mm sections were generated. Radiation dose was minimized using automated exposure control Dose: Total Dose Length Product - DLP 1396.[address] Dose Index - CTDIvol(s) 70.38 mGy. Comparison: none Findings: The ventricular system is normal in size and configuration. There is no shift of midline structures. No abnormal extra-axial fluid collections are noted. There is no evidence of intracerebral bleeding. No other abnormal high or low density areas are noted within the brain. Croft-white differentiation is normal. There is some left parietal scalp soft tissue swelling. The calvarium is intact. Visualized orbits and sinuses are unremarkable. The mastoids are clear Impression: Normal CT scan of the head without contrast material. Negative for acute intracranial bleed or mass effect Incidental finding of left parietal scalp soft tissue swelling The CT scanner at [facility] is accredited by the [employer] and the scans are performed using protocols designed to limit radiation exposure to as low as reasonably achievable to attain images of sufficient resolution adequate for diagnostic evaluation.
[2017-12-24 15:01] LABS: ANION GAP 10 mmol/L (5-15); BLOOD UREA NITROGEN 10 mg/dL (7-18); CALCIUM 8.9 MG/DL (8.5-10.1); CARBON DIOXIDE 24 MMOL/L (21-32); CHLORIDE 102 MMOL/L (98-107); CREATININE 0.7 MG/DL (0.55-1.30); POTASSIUM 3.1 MMOL/L (3.5-5.1); SODIUM 136 MMOL/L (136-145)
[2017-12-24] MEDS ORDERED: cefTRIAXone 1 GM in NS 55 ML IVPB ONE (15:15)
[2017-12-24 15:20] VITALS: BP 135/124
[2017-12-24 15:40] LABS: ALANINE AMINOTRANSFERASE 20 U/L (12-78); ALBUMIN 2.7 G/DL (3.4-5.0); ALBUMIN/GLOBULIN RATIO 0.6 (1.0-2.7); ALKALINE PHOSPHATASE 114 U/L (46-116); ASPARTATE AMINO TRANSFERASE 40 U/L (15-37); BILIRUBIN,TOTAL 0.8 MG/DL (0.2-1.0); CKMB 2.3 NG/ML (0.0-3.6); CREATINE KINASE 128 U/L (26-308)
--- NOTE | 2017-12-24 16:36 | Diagnostic Imaging Report ---
Indication: Headache and blurry vision Technique: Continuous helical CT scanning of the head was performed without intravenous contrast material. Axial and coronal 5 mm sections were generated. Radiation dose was minimized using automated exposure control Dose: Total Dose Length Product - DLP [address] Dose Index - CTDIvol(s) 70 mGy. Comparison: Findings: The ventricular system is normal in size and configuration. There is no shift of midline structures. No abnormal extra-axial fluid collections are noted. There is no evidence of intracerebral bleeding. No other abnormal high or low density areas are noted within the brain. The calvarium is intact. There is opacification of the right sphenoid sinus. Croft-white differentiation is normal. Impression: Normal CT scan of the head without contrast material. Incidental finding of sinus disease The CT scanner at [facility] is accredited by the [employer] and the scans are performed using protocols designed to limit radiation exposure to as low as reasonably achievable to attain images of sufficient resolution adequate for diagnostic evaluation.
--- NOTE | 2017-12-24 17:29 | Diagnostic Imaging Report ---
Indication: Chest pain Technique: One view of the chest Comparison: 06/01/2016 Findings: Lungs and pleural spaces are clear. Heart size is normal . The aorta is tortuous and ectatic. No significant change Impression: No acute process
[2017-12-24 18:36] VITALS: BP 186/120
[2017-12-24] MEDS ORDERED: Labetalol 5mg/ml 20ml vial IV ONE ×2 (19:15→19:45)
[2017-12-24] MEDS ORDERED: Acetaminophen 500mg (ES) tab ORAL ONE ×2 (19:24→19:30)
--- NOTE | 2017-12-24 19:32 | Diagnostic Imaging Report ---
EXAM: US After First Trimester, Transabdominal US , Transvaginal CLINICAL HISTORY: PAIN TECHNIQUE: Real-time transabdominal and endovaginal obstetrical ultrasound of the maternal pelvis and a second or third trimester with image documentation. Endovaginal imaging was used for better evaluation of the fetus and adnexa. COMPARISON: No relevant prior studies available. FINDINGS: Fetus :IUP measuring 22 weeks 1 day with heart rate of 166 beats/minute. Placenta: Placenta is anterior Amniotic fluid: No cumulative measurements. Anatomy: Limited anatomic survey. MATERNAL: Uterus: Apparent 7.8 x 7.5 cm lesion presumably related to the uterus. Cervix: Cervix measures 3.9 cm. IMPRESSION: 1. IUP measuring 22 weeks 1 day with heart rate of 166 beats/minute. 2. Apparent 7.8 x 7.5 cm lesion presumably related to the uterus. Could be fibroid, hemorrhage or contraction. Recommend short-term followup to reassess.
[2017-12-24 20:02] VITALS: BP 176/102
[2017-12-24 20:10] VITALS: BP 176/102
--- NOTE | 2017-12-26 15:55 | Cardiology Report ---
APPROVED REPORT EKG Measurement Heart [id number] Normal sinus rhythm Biatrial enlargement Left axis deviation Incomplete right bundle branch block Anterior infarct, age undetermined Abnormal ECG
== END 2017-12-24 20:15 | disposition short-term general hospital (02) ==
LOC: EMR 15:17
DX: I10 Essential (primary) hypertension (principal); R51 Headache; O23.42 Unspecified infection of urinary tract in pregnancy, second trimester; Z3A.00 Weeks of gestation of pregnancy not specified; Z37.9 Outcome of delivery, unspecified
CPT/HCPCS: 36415; 70450; 71045; 76805; 80053; 80307; 81003; 81025; 82550; 82553; 84702; 85007; 85025; 87086; 93005; 96365; 96366; 96375; 96376; 99291; J0360; J0696; J2405; J8499